=== PATIENT | male | born 1990 | race Caucasian/White ===

== ENCOUNTER 2021-05-01 01:51 | Emergency (ER) | payer OTHER ==
[~2021-05-01] VITALS: Ht 175.3 cm; Wt 77.6 kg
[2021-05-01] MEDS ORDERED: ONDA4TAB7 PO (02:09)
[2021-05-01] MEDS ORDERED: PROM25SU33 RC (02:09)
--- NOTE | 2021-05-01 02:09 | PHYS DOC ---
Adult General Chief Complaint Chief Complaint: NAUSEA/VOMITING/DIARRHEA HPI HPI Patient is a 31-year-old male who presents with a chief complaint of nausea, vomiting and diarrhea which started yesterday. States that his daughter had similar symptoms and thinks it could be because they ate some chicken at [employer] yesterday before symptoms started. States he has had 6 or 7 nonbloody nonbilious episodes of vomiting and some watery diarrhea. States they came on right about the same time. Denies any recent travels, traumas, other illnesses, fevers, chest pain, shortness of breath, dysuria, hematuria, blood in the stool. Review of Systems Review of Systems Review of systems otherwise unremarkable except noted in HPI Physical Exam Physical Exam Constitutional: Well developed, well nourished, no acute distress, non-toxic appearance. [] HENT: Normocephalic, atraumatic, Eyes: conjunctiva normal, no discharge. [] Neck: Normal range of motion, no tenderness, supple, no stridor. [] Cardiovascular:Heart rate regular rhythm, no murmur [] Lungs & Thorax: Bilateral breath sounds clear to auscultation [] Abdomen: soft, no tenderness, no masses, no pulsatile masses. [] Skin: Warm, dry, no erythema, no rash. [] Back: no CVA tenderness. [] Extremities: No tenderness, ROM intact, no edema. [] Neurologic: Alert and oriented X 3, no focal deficits noted. [] Psychologic: Affect normal, judgement normal, mood normal. [] EKG EKG [] Radiology/Procedures Radiology/Procedures [] Heart Score C/O Chest Pain: No Risk Factors: Risk Factors: DM, Current or recent (<one month) smoker, HTN, HLP, family history of CAD, obesity. Risk Scores: Risk Factors: DM, Current or recent (<one month) smoker, HTN, HLP, family history of CAD, obesity. Course & Med Decision Making Course & Med Decision Making Patient is a 31-year-old male who presents with nausea, vomiting and diarrhea Vital signs not concerning . Physical exam noted above. Patient placed on the monitor with IV access established. Given nausea medicine x2. Given p.o. fluids which he tolerated well. Patient stated that the nausea medicine worked well, he was feeling better and was ready to go home. Discussed symptom treatment at home. Given nausea medicine for home. Discussed diet over the next couple of days. Advised to follow-up in the morning with primary care physician. Gave return precautions to the ED. Patient grateful, verbalized understanding and agreed with plan of discharge. Ranjan Disclaimer Ranjan Disclaimer This electronic medical record was generated, in whole or in part, using a voice recognition dictation system. Departure Departure: Impression: Primary Impression: Nausea vomiting and diarrhea Disposition: HOME / SELF CARE / HOMELESS Condition: GOOD Referrals: JOSÉ ANTONIO DANIELSON MD Patient Instructions: Diarrhea, Nausea and Vomiting Additional Instructions: Thank you for coming into the emergency department tonight and allowing us to take care of you. Please read the attached information carefully to go over the things we discussed. Please be sure to take your nausea medicine as prescribed and as needed as we discussed. Over the next couple of days please eat a light clear diet as we discussed to give your bowels some rest. Please be sure to stay well-hydrated. Please call your primary care physician soon as you can to update them and set up a follow-up visit. Please come back to the ED immedi ately with new or concerning symptoms as we discussed. Scripts Promethazine Hcl (PROMETHAZINE HCL) 25 Mg Supp.rect 25 MG RC BID for nausea for 7 Days, #14 SUPP.RECT Prov: PRIYANKA THOMAS MD 05/01/21 Ondansetron Hcl (ZOFRAN) 4 Mg Tablet 1 TAB PO PRN Q6HRS PRN for NAUSEA for 7 Days, #15 TAB 2 Refills Prov: PRIYANKA THOMAS MD 05/01/21 PRIYANKA THOMAS MD May 01, 2021 02:09
[2021-05-01] MEDS ORDERED: ONDANSETRON PF 4 MG/2 ML VIAL. IVP ONE (02:30)
[2021-05-01] MEDS ORDERED: METOCLOPRAMIDE HCL 10 MG/2 ML VIAL. IVP ONE (02:30)
[2021-05-01] MEDS ORDERED: MIDAZOLAM HCL PF 5 MG/5 ML VIAL. IV ONE (03:00)
[2021-05-01 03:05] VITALS: BP 119/65
== END 2021-05-01 03:05 | disposition home or self-care (01) ==
LOC: ER 01:51
DX: R11.2 Nausea with vomiting, unspecified (principal); R19.7 Diarrhea, unspecified
CPT/HCPCS: 96374; 96375; 99284; J2250; J2405; J2765